=== PATIENT | male | born 1985 | race Caucasian/White ===

== ENCOUNTER 2023-07-21 15:35 | Emergency (ER) | payer MEDICAID, SELFPAY ==
--- NOTE | 2023-07-21 15:33 | ECG_ITS ---
APPROVED REPORT Exam: Resting ECG HR:75 bpm ECG Measurements Heart Rate 75 AXES MO 132 P 66 QRSd 98 QRS 44 QT 364 T 30 QTc 393 Conclusion SINUS RHYTHM NONSPECIFIC T-WAVE ABNORMALITY BORDERLINE ECG UNCONFIRMED REPORT Electronically signed by : Viktor Celis MD 07/22/2023 06:29:47
[2023-07-21 15:35] VITALS: BP 141/89; PULSE 73; RESP 18; TEMP 36.6; O2SAT 97; BMI 30.8
--- NOTE | 2023-07-21 15:36 | XR_ITS ---
FINAL REPORT CLINICAL HISTORY: Chest pain and soa former smoker of 3 yrs FINDINGS: 2 views of the chest were obtained . The heart is normal in size. The mediastinum is within normal limits. The lungs are clear. There is no pneumothorax. Osseous structures are unremarkable. IMPRESSION: No acute cardiopulmonary process. Reviewed, Interpreted and Dictated by Son Fuentes III, MD Transcribed by Leidy Ellis Authenticated and [facility]
[2023-07-21 15:50] LABS: Basophils % 0.4 % (0.1-2.0); Eosinophils # 0.3 K/mm3 (0.0-0.4); Eosinophils % 2.8 % (0.1-12.0); Hematocrit 46.9 % (42.0-52.0); Lymphocytes # 3.1 K/mm3 (0.7-4.5); Lymphocytes % 33.4 % (10-50); Mean Corpuscular HGB Conc 34.2 g/dL (31.8-35.4); Mean Corpuscular Hemoglobin 30.7 pg (27.0-31.2); Mean Corpuscular Volume 89.6 fl (80-94); Mean Platelet Volume 8.2 fl (7.4-10.4); Monocytes # 0.5 K/mm3 (0.1-1.0); Monocytes % 5.9 % (1.7-9.3); Neutrophils # 5.3 K/mm3 (1.8-7.8); Neutrophils % 57.5 % (37.0-80.0); Platelet Count 229 K/mm3 (142-424); Red Blood Count 5.23 M/mm3 (4.60-6.20); Red Cell Distribution Width 13.7 % (11.5-17.5); White Blood Count 9.2 K/mm3 (4.8-10.8)
[2023-07-21 15:53] LABS: Chloride 107 mmol/L (98-107); Sodium 137 mmol/L (136-145)
[2023-07-21 15:54] LABS: Potassium 3.8 mmoL/L (3.5-5.1)
[2023-07-21 15:56] LABS: Alanine Aminotransferase 38 U/L (12-78); Albumin Level 4.3 g/dl (3.5-5.0); Albumin/Globulin Ratio 1.4 (1.1-1.8); Alkaline Phosphatase 55 U/L (38-126); Anion Gap 9.8 mEq/L (5-15); Aspartate Amino Transferase 38 U/L (17-59); Bilirubin,Total 0.6 mg/dl (0.2-1.3); Blood Urea Nitrogen 10 mg/dl (9-20); Carbon Dioxide 24 mmol/L (22.0-30.0); Creatinine Clearance Estimated 207 mL/min (50-200); Estimated Glomerular Filt Rate 108 ml/min (>60); GFR (African American) 130 ML/MIN (>60); Total Protein,Serum 7.3 g/dl (6.3-8.2)
[2023-07-21 15:57] LABS: Glucose 122 mg/dl (74-100)
--- NOTE | 2023-07-21 15:57 | PC.NURSE ---
Dr. Juarez at BS for pt eval
[2023-07-21 16:00] VITALS: BP 136/76; PULSE 89; RESP 12; O2SAT 98
--- NOTE | 2023-07-21 16:12 | ED_ITS ---
Discharge Plan Disposition Patient Disposition: Home, Self-Care Chief Complaint: Chest Pain Referrals Follow up/Referrals: Jose Ha [Primary Care Provider] - See instructions Dav Simmons MD [Staff Physician] - See instructions Activity Restrictions/Add. Instructions Additional Instructions/Restrictions: Call your family doctor to establish care for this visit to the emergency department and schedule follow-up within 48 hours to ensure improvement. If you have any worsening of your condition or any other concerning signs or symptoms, return to the emergency department or your primary care doctor for further evaluation. Cardiology information put here, call them to schedule follow-up appointment. Clinical Impressions Clinical Impression: Chest pain Discharge ED Provider: Damien Juarez HPI General Chief Complaint: Chest Pain Stated Complaint: CP Time Seen by Provider: 07/21/23 15:38 Mode of Arrival: Ambulatory Source of Information: Patient Limitations: No Limitations Description of Symptoms (Recalled from ER Triage Doc. by RN): patient ambulatory to ED with complaints of left intermittent chest pressure x 3 days. does not radiate and denies other issues. no meds [employer] History of Present Illness HPI narrative: 37-year-old male history of pancreatic insufficiency, hypertension presenting with chest pain. Patient states chest pain started 4 days prior to this visit. Anterior, by left shoulder. It is a discomfort/ache more than anything. Does not radiate. Patient states that today, 07/21, he was driving and he had a hot flash, where he got sweaty palms and felt foggy, so in the setting of this with chest pressure, came to the emergency department for further relation. Denies fevers, chills, nausea, vomiting, DVT or PE risk factors, shortness of breath, cough, or any other concerns. Related Data Allergies Allergy/AdvReac Type Severity Reaction Status Date / Time amoxicillin Allergy Verified 07/21/23 15:57 Penicillins Allergy Verified 07/21/23 15:57 [facility] Disclaimer: The information contained in this section may have been updated after the patient was seen, as this information can be updated by other users. Social History Smoking Status: Former smoker alcohol intake: never current occupational status: employed Travel in the last 8 weeks: None ROS Obtained: Yes All systems reviewed & no additional complaints except as documented Physical Exam General General appearance: alert Neck Neck exam: Present trachea midline Chest Chest inspection: Present normal inspection and symmetric chest wall rise Respiratory Respiratory exam: Present normal lung sounds bilaterally; Absent respiratory distress, wheezes, stridor, accessory muscle use or prolonged expiratory phase Cardiovascular Cardiovascular exam: Present regular rate and normal rhythm Extremities Exam Extremities exam: Absent edema Neurological Exam Neurological exam: Present alert, oriented X3 and CN II-XII intact Skin Skin exam: Present warm and dry; Absent cyanosis, diaphoresis or pallor HEART Score HEART Score HEART Score assessment performed?: Yes HEART Score: 0 Critical Care Critical Care Time Critical Care Time: No Medical Decision Making Medical Records Medical records reviewed: Yes I reviewed the patient's medical records. Carlos Inquiry Pt receiving controlled substance: No Carlos was queried for this patient: No Vital Signs Vital Signs: 07/21/23 15:35 07/21/23 16:00 07/21/23 16:31 Temperature 97.9 F Temperature Source Oral Pulse Rate 89 70 Pulse Rate [Right] 73 Respiratory Rate 18 12 12 Blood Pressure 136/76 126/78 Blood Pressure [Right Arm] 141/89 H Blood Pressure Mean [Right Arm] 106 Blood Pressure Source [Right Arm] Automatic Cuff Blood Pressure Position [Right Arm] Sitting 02 Sat by Pulse Oximetry 97 98 96 Oxygen Delivery Method Room Air Room Air Room Air 07/21/23 17:01 07/21/23 17:30 Temperature Temperature Source Pulse Rate 73 57 L Pulse Rate [Right] Respiratory Rate 10 L 11 L Blood Pressure 114/71 116/77 Blood Pressure [Right Arm] Blood Pressure Mean [Right Arm] Blood Pressure Source [Right Arm] Blood Pressure Position [Right Arm] 02 Sat by Pulse Oximetry 94 L 97 Oxygen Delivery Method Room Air Room Air Lab Data Labs: Lab Results 07/21/23 15:40: WBC 9.2, RBC 5.23, Hgb 16.0, Hct 46.9, MCV 89.6, MCH 30.7, MCHC 34.2, RDW 13.7, Plt Count 229, MPV 8.2, Neut % (Auto) 57.5, Lymph % (Auto) 33.4, [place] % (Auto) 5.9, Eos % (Auto) 2.8, Baso % (Auto) 0.4, Neut # (Auto) 5.3, Lymph # (Auto) 3.1, [place] # (Auto) 0.5, Eos # (Auto) 0.3, Baso # (Auto) 0.0, Sodium 137, Potassium 3.8, Chloride 107, Carbon Dioxide 24, Anion Gap 9.8, BUN 10, Creatinine 0.80, Estimated Creat Clear 207, Estimated GFR 108, Est GFR ( Amer) 130, Glucose 122 H, Calcium 9.0, Total Bilirubin 0.6, AST 38, ALT 38, Alkaline Phosphatase 55, Troponin I < 0.01, NT-Pro-B Natriuret Pep 35.4, Total Protein 7.3, Albumin 4.3, Globulin 3.0, Albumin/Globulin Ratio 1.4, Lipase 60 07/21/23 15:40 07/21/23 15:40 Response Orders (Tests/Meds): ED MEDICATIONS Discontinued Medications Generic Name Dose Route Start Last Admin Trade Name Freq PRN Reason Stop Dose Admin Aspirin 324 mg 07/21/23 16:09 07/21/23 16:32 Aspirin 81mg Chewable Tablet PO 07/21/23 16:10 324 mg ONCE ONE Administration ORDERS Category Date Time Status CXR 2 view (NOT portable) [XR chest 2V] Stat Exams 07/21/23 15:36 Completed Brain Natriuretic Peptide Stat Lab 07/21/23 15:40 Completed Complete Blood Count Auto Diff Stat Lab 07/21/23 15:40 Completed Comprehensive Metabolic Panel Stat Lab 07/21/23 15:40 Completed Lipase Stat Lab 07/21/23 15:40 Completed Troponin I Q3H Lab 07/21/23 18:45 Ordered Troponin I Q3H Lab 07/21/23 21:45 Ordered Troponin I Stat Lab 07/21/23 15:40 Completed ECG initial [place] Routine Y 07/21/23 15:33 Completed MDM Narrative Medical Decision Narrative: 37-year-old male history of pancreatic insufficiency, hypertension presenting with chest pain. Patient states chest pain started 4 days prior to this visit. Anterior, by left shoulder. It is a discomfort/ache more than anything. Does not radiate. Patient states that today, 07/21, he was driving and he had a hot flash, where he got sweaty palms and felt foggy, so in the setting of this with chest pressure, came to the emergency department for further relation. Denies fevers, chills, nausea, vomiting, DVT or PE risk factors, shortness of breath, cough, or any other concerns. History was obtained via conversation with patient. On arrival, patient hemodynamically stable, alert, oriented x4, appropriate, GCS 15, moving all extremities spontaneously, pupils equal and reactive to light. Full physical exam performed and significant for well-appearing male in no acute distress. Lungs are clear to auscultation bilaterally. Cardiac exam without murmurs, gallops, rubs, or pulse deficits. No lower extremity edema. Patient neurologically intact. Saturating appropriately on room air, nontachycardic and normotensive. Differential includes stable angina, unstable angina, ACS, [place], pancreatitis, bronchitis, pneumonia, pneumothorax, among others. Patient was given 324 mg aspirin p.o. for symptomatic management and correction of underlying abnormalities. Workup independently interpreted and significant for nonactionable CBC or chemistry. Troponin negative. BNP negative. Lipase normal. Chest x-ray without acute cardiopulmonary airspace disease. See radiology read for full review of final results. Independent interpretation of EKG shows sinus rhythm 75 beats a minute. UT, QRS, QT intervals within normal limits. Scarbro normal. No ST or T wave changes concerning for acute ischemia. Patient placed on continuous cardiac monitoring and continuous pulse ox with initial blood pressure 136/76, heart rate 74, saturation 97 on room air. Heart score 0. On reevaluation, patient resting comfortably in bed. Given patient presentation, workup, history, this most likely represents stable angina versus noncardiac chest pain. Because patient at baseline without signs or symptoms of clinical decompensation, deemed appropriate for discharge. Results were relayed to patient who voiced understanding and were agreeable to outpatient management and follow up. At the time of discharge the patient was hemodynamically stable, tolerating PO, and mobilizing appropriately.
[2023-07-21 16:19] LABS: Lipase 60 U/L (23-300)
[2023-07-21 16:28] LABS: Troponin I < 0.01 ng/ml (0.00-0.034)
[2023-07-21 16:29] LABS: NT Pro Brain Natriuretic Pep. 35.4 pg/mL (0-125)
[2023-07-21 16:31] VITALS: BP 126/78; PULSE 70; RESP 12; O2SAT 96
[2023-07-21] MEDS: ASPIRIN 81MG CHEWABLE TABLET 324 MG PO (16:32)
[2023-07-21 17:01] VITALS: BP 114/71; PULSE 73; RESP 10; O2SAT 94
[2023-07-21 17:30] VITALS: BP 116/77; PULSE 57; RESP 11; O2SAT 97
[2023-07-21 18:07] VITALS: BP 117/74; PULSE 66; RESP 10; TEMP 36.6; O2SAT 98
== END 2023-07-21 18:08 | disposition home or self-care (01) ==
PROVIDERS: Emergency Provider Emergency Medicine; PCP Pediatrics
DX: R07.9 Chest pain, unspecified (principal); I10 Essential (primary) hypertension; M25.512 Pain in left shoulder; Z87.891 Personal history of nicotine dependence
CPT/HCPCS: 71046; 80053; 83690; 83880; 84484; 85025; 93005; 99285

== ENCOUNTER 2024-03-06 08:59 | Emergency (ER) | payer MEDICAID, SELFPAY ==
[2024-03-06 09:00] VITALS: BP 138/79; PULSE 89; RESP 18; TEMP 36.2; O2SAT 98; BMI 32.5
--- NOTE | 2024-03-06 09:26 | HMH.EDGENADL ---
Discharge Plan Disposition Patient Disposition: Home, Self-Care Prescriptions Prescriptions: New methocarbamol 500 mg tablet 1,000 mg PO Q8H Qty: 90 0RF lidocaine 5 % adhesive patch,medicated 1 patch topical Q24H Qty: 30 0RF Rx Instructions: leave on most painful area for up to 12 hrs Referrals Follow up/Referrals: Jose Ha [Primary Care Provider] - See instructions Activity Restrictions/Add. Instructions Additional Instructions/Restrictions: Take Tylenol 1000 mg every 6 hours and ibuprofen 400 mg every 6 hours. Take muscle relaxers as needed. Use lidocaine patches as needed. Follow-up with primary care doctor. Please return to the emerged part with any new, concerning, worsening symptoms including but not limited to involuntarily pooping on yourself, inability to urinate, urinating on yourself, numbness in your groin, weakness or sensory changes of your legs, inability to walk due to weakness. Clinical Impressions Clinical Impression: Strain of lumbar region Qualifiers: Encounter type: initial encounter Qualified Code(s): S39.012A - Strain of muscle, fascia and tendon of lower back, initial encounter Instructions Patient Instructions: DI for Low Back Pain Print Language Print Language: Turkish Discharge ED Provider: Eric Enrique General Adult HPI General Chief complaint: Back Pain/Injury Stated complaint: Pain in lower back, no accident Time Seen by Provider: 03/06/24 09:02 Mode of Arrival: Ambulatory Source of Information: Patient Limitations: No Limitations Description of Symptoms (Recalled from ER Triage Doc. by RN): pt presents to ED c/o low back pain that started last night after carrying a case of water and sitting it down. pt states pain is in the center of his low back. denies any loss of bowel or bladder. denies pain radiating to either extremity. History of Present Illness HPI narrative: This is a 38-year-old male with a past medical history of hypertension and GERD who presents with low back pain. States that he was carrying a pack of water bottles yesterday whenever he experienced acute onset low back pain. Localized to his lumbar area. Does not radiate. No radicular symptoms. No sensory changes or weakness. No saddle anesthesia. No fecal incontinence, bladder incontinence, or urinary retention. No history of IV drug use. No fever. Has been using a lidocaine cream. No other medications taken prior to arrival Related Data Previous Rx's ?Medication ?Instructions ?Recorded lidocaine 5 % topical patch 1 patch topical Q24H #30 ea 03/06/24 methocarbamol 500 mg tablet 1,000 mg (2 x 500 mg) PO Q8H #90 03/06/24 tabs Allergies Allergy/AdvReac Type Severity Reaction Status Date / Time amoxicillin Allergy Verified 07/21/23 15:57 Penicillins Allergy Verified 07/21/23 15:57 PFSH PFS Disclaimer: The information contained in this section may have been updated after the patient was seen, as this information can be updated by other users. Social History (Updated 07/21/23 @ 17:46 by Damien Juarez MD) Smoking Status: Former smoker alcohol intake: never current occupational status: employed Travel in the last 8 weeks: None ROS Obtained: Yes All systems reviewed & no additional complaints except as documented Physical Exam General General appearance: alert and in no apparent distress Eye Eye exam: Present normal appearance, PERRL and EOMI Respiratory Respiratory exam: Present normal lung sounds bilaterally; Absent respiratory distress Cardiovascular Cardiovascular exam: Present regular rate and normal rhythm Abdominal Exam Abdominal exam: Present soft and distention; Absent tenderness, guarding or rebound Extremities Exam Extremities exam: Present normal inspection Back Exam Back exam: Present tenderness (Lumbar spine paraspinal muscles) Neurological Exam Neurological exam: Present alert and oriented X3 Skin Skin exam: Present warm and dry Medical Decision Making Medical Records Medical records reviewed: Yes I reviewed the patient's medical records. Screening: Per USPSTF and CDC recommendations, given the prevalence of disease in our region, it is our hospital?s policy to screen for HIV and viral Hepatitis for all patients aged 18 and over and those with ongoing risk factors. Carlos Inquiry Pt receiving controlled substance: No Vital Signs: 03/06/24 09:00 Temperature 97.2 F L Temperature Source Temporal Artery Scan Pulse Rate [Right Radial] 89 Respiratory Rate 18 Blood Pressure [Right Arm] 138/79 Blood Pressure Mean [Right Arm] 98 Blood Pressure Source [Right Arm] Automatic Cuff Blood Pressure Position [Right Arm] Sitting 02 Sat by Pulse Oximetry 98 Oxygen Delivery Method Nasal Cannula Orders (Tests/Meds): ED MEDICATIONS Discontinued Medications Generic Name Dose Route Start Last Admin Trade Name Freq PRN Reason Stop Dose Admin Acetaminophen 1,000 mg 03/06/24 09:22 Acetaminophen 500mg Tab PO 03/06/24 09:23 ONCE ONE Ibuprofen 400 mg 03/06/24 09:22 Ibuprofen 400 Mg Tablet PO 03/06/24 09:23 ONCE ONE Methocarbamol 1,000 mg 03/06/24 09:22 Methocarbamol 500mg Tablet PO 03/06/24 09:23 ONCE ONE Medical Decision Narrative: In summary, this 38-year-old male presents to the emergency department today with acute low back pain after carrying a pack of water bottles yesterday. On initial evaluation patient is afebrile, hemodynamically stable, nontoxic-appearing, neurologically intact. Differential diagnosis includes but is not limited to cauda equina, lumbar muscle strain, herniated disc. Most likely etiology is a lumbar muscle strain, however herniated disc cannot be ruled out at this time. He had no neurological symptoms and no red flag symptoms concerning for cord compression syndrome. Appropriate for outpatient follow-up with PCP to pursue physical therapy and possible MRI if pain persist past 3 weeks. Patient received Tylenol, Robaxin, and ibuprofen for treatment. Prescribed Robaxin and lidocaine patches for outpatient management. Instructed on pain control with Tylenol, ibuprofen as well. Critical Care Critical Care Time Critical Care Time: No
[2024-03-06] MEDS: ACETAMINOPHEN 500MG TAB 1000 MG PO (09:28)
[2024-03-06] MEDS: METHOCARBAMOL 500MG TABLET 1000 MG PO (09:28)
[2024-03-06] MEDS: IBUPROFEN 400 MG TABLET PO (09:28)
[2024-03-06 09:35] VITALS: BP 138/79; PULSE 89; RESP 16; TEMP 36.2; O2SAT 98
== END 2024-03-06 09:36 | disposition home or self-care (01) ==
PROVIDERS: Emergency Provider Student in an Organized Health Care Education/Training Program; PCP Pediatrics
DX: S39.012A Strain of muscle, fascia and tendon of lower back, initial encounter (principal); X50.0XXA Overexertion from strenuous movement or load, initial encounter
CPT/HCPCS: 99283